=== PATIENT | female | born 1980 | race Caucasian/White ===

== ENCOUNTER 2024-09-13 09:21 | Emergency (ER) | payer OTHER ==
[2024-09-13] MEDS ORDERED: Ketorolac Tromethamine 30 MG (1 mL) VIAL ONE (10:25)
[2024-09-13] MEDS ORDERED: diphenhydrAMINE 50 MG/ML VIAL ONE (10:25)
[2024-09-13] MEDS ORDERED: Metoclopramide HCl 10 MG (2 mL) VIAL ONE (10:26)
== END 2024-09-13 12:01 | disposition home or self-care (01) ==
LOC: ERS 09:21
DX: G43.909 Migraine, unspecified, not intractable, without status migrainosus (principal)
CPT/HCPCS: 96374; 96375; J1200; J1885; J2765